=== PATIENT | female | born 1960 | race Caucasian/White ===

== ENCOUNTER 2017-03-11 06:17 | Observation (INO) | payer OTHER ==
[~2017-03-11 06:17] MED LIST: Acetaminophen TAB* 325 MG PO ONE; Buffered Lidocaine 0.9% SYRIN* 5 ML/SYR SYRINGE INTRADERM ONE; Dexamethasone IV* 4 MG/ML 1 ML (4 MG) IV SLOW PU ONE; Famotidine IV* 10 MG/ML 2 ML (20 mg) IV ONE; Scopolamine 1.5 mg* PATCH TRANSDERM ONE
[2017-03-11] MEDS ORDERED: Dexamethasone IV* 4 MG/ML 1 ML (4 MG) ONE (06:42)
[2017-03-11] MEDS ORDERED: Acetaminophen TAB* 325 MG ONE (06:42)
[2017-03-11] MEDS ORDERED: Famotidine IV* 10 MG/ML 2 ML (20 mg) ONE (06:42)
[2017-03-11] MEDS ORDERED: Buffered Lidocaine 0.9% SYRIN* 5 ML/SYR SYRINGE ONE (06:42)
[2017-03-11] MEDS ORDERED: ceFAZolin 2 GM PREMIX (*) 2 GM/50 ML BAG IVPB ONE (06:43)
[2017-03-11] MEDS ORDERED: Midazolam* 1 MG/ML 2 ML VIAL (2 MG) ONE (07:15)
[2017-03-11] MEDS ORDERED: Lidocaine 2% PF * 5 ML VIAL ONE (07:15)
[2017-03-11] MEDS ORDERED: fentaNYL* 50 MCG/ML 2 ML VIAL (100 MCG VIAL) ONE ×4 (07:15→10:29)
[2017-03-11] MEDS ORDERED: Rocuronium* 10 MG/ML VIAL ONE (07:17)
[2017-03-11] MEDS ORDERED: Scopolamine 1.5 mg* PATCH ONE (07:21)
[2017-03-11 07:23] LABS: Hematocrit 42 % (35-47); Hemoglobin 14.5 g/dl (12.0-16.0); Mean Corpuscular HGB Conc 34 g/dl (31-36); Mean Corpuscular Hemoglobin 32 pg (27-31); Mean Corpuscular Volume 94 fL (80-97); Mean Platelet Volume 6 um3 (7.4-10.4); Red Blood Count 4.46 10^6/ul (4.0-5.4); Red Cell Distribution Width 13 % (10.5-15); White Blood Count 3.1 10^3/ul (3.5-10.8)
[2017-03-11] MEDS ORDERED: oxyCODONE TAB* 5 MG TAB PO PRN (07:23)
[2017-03-11] MEDS ORDERED: Ibuprofen TAB* 600 MG PO PRN ×2 (07:23→12:05)
[2017-03-11] MEDS ORDERED: oxyCODONE/Acetamin 5/325 MG* TAB PO PRN (07:23)
[2017-03-11] MEDS ORDERED: diPHENhydraMINE IV* 50 MG/ML 1 ml VIAL (BENADRYL) IV PRN (07:23)
[2017-03-11] MEDS ORDERED: DiMENhydriNATE IV* 50 MG/ML VIAL IV PUSH PRN (07:23)
[2017-03-11] MEDS ORDERED: Ondansetron INJ* 2 MG/ML VIAL IV PRN ×2 (07:23→12:07)
[2017-03-11 07:24] LABS: Add Diff/Slide Review? Slide Review Added; Comments Flag Yes
[2017-03-11] MEDS ORDERED: Bupivacaine 0.5% SDV PF* 30 ML VIAL ONE (07:30)
[2017-03-11] MEDS ORDERED: EPHEDrine (Pressors)* 50 MG/ML VIAL ONE (08:12)
[2017-03-11] MEDS ORDERED: Sterile Water for Inj* 10 ML ONE (08:12)
[2017-03-11] MEDS ORDERED: Glycopyrrolate IV* 0.2 MG/ML 1 ML VIAL ONE ×2 (08:24→09:20)
[2017-03-11] MEDS ORDERED: Ketorolac INJ* 30 MG/ML 1 ML VIAL ONE (09:20)
[2017-03-11] MEDS ORDERED: Ondansetron INJ* 2 MG/ML VIAL ONE (09:20)
[2017-03-11] MEDS ORDERED: Neostigmine Methylsulfate* 2 MG/2 ML SYRINGE ONE (09:20)
[2017-03-11] MEDS ORDERED: HYDROmorphone INJ* 1 MG/ML CARPUJECT SYRINGE ONE (10:18)
[2017-03-11] MEDS: fentaNYL* 50 MCG/ML 2 ML VIAL (100 MCG VIAL) IV PRN ×2 (10:19→10:26)
[2017-03-11] MEDS: HYDROmorphone INJ* 1 MG/ML CARPUJECT SYRINGE IV PRN ×3 (10:20→11:01)
[2017-03-11] MEDS ORDERED: Triamcinolone 0.025% OINT * 15 GM TUBE TOPICAL PRN (11:54)
[2017-03-11] MEDS ORDERED: HYDROmorphone INJ* 1 MG/ML CARPUJECT SYRINGE IV PRN (12:06)
--- NOTE | 2017-03-11 16:33 | OP ---
OPERATIVE REPORT: DATE OF OPERATION: 03/11/17 DATE OF : 60 SURGEON: Hernandez Middleton MD. BLOCKERS SKIVER: Dr. Rios. ANESTHESIA: General endotracheal tube. PRE-OP DIAGNOSES: Fibroid uterus, menorrhagia, failed endometrial ablation. POST-OP DIAGNOSES: Fibroid uterus, menorrhagia, failed endometrial ablation. OPERATIVE PROCEDURE: Laparoscopic supracervical hysterectomy and bilateral salpingectomy. COMPLICATIONS: None. FINDINGS: On exam under anesthesia, anterior bladder flap appeared normal. The cul-de-sac appeared normal. Both tubes and ovaries appeared normal. The uterus was quite enlarged measuring 14 weeks size and weight in the operating room was 3 pounds 9 ounces, approximately 1.6 kilos. DESCRIPTION OF PROCEDURE: The patient identified, procedure identified as a laparoscopic supracervical hysterectomy. The patient was taken to the operating room, prepped and draped in the usual fashion in the dorsal lithotomy position under general anesthesia. A Tabernash manipulator was placed in the cervical os. A small infraumbilical incision was made and carried down through fat, fascia and peritoneum. First, an Girish was placed in the abdomen and then a Gelpoint was placed over this with 3 trocar sites. The above findings were noted. The round ligaments were grasped bilaterally and ligated and incised. A bladder flap was created via sharp and blunt dissection. The left fallopian tube was grasped at the fimbriated ends and ligated using the LigaSure along the mesosalpinx until it was excised and was brought out through the abdominal incision. Same procedure was carried out on the right. The ovarian ligament was grasped and ligated using the LigaSure and brought down to the level on the left. The broad ligament was coagulated and incised using the LigaSure. The bladder flap was further dissected caudally. The uterine vessels on the left side were cauterized, ligated and incised. Same procedure was carried out on the right with the right ovarian ligament first being cauterized and then the LigaSure used to cauterize and incise the broad ligament until the level of the uterine vessels were obtained and these were ligated and incised leaving the lower uterine segment and the upper cervix exposed and free of blood supply. The Supra Loop was brought in again through the Gelpoint and placed around the cervical uterine junction and tightened down. It was closely inspected using the scope to make sure that there was no bowel or any other organs within the Supra Loop. The manipulator had been removed at the time of using the Supra Loop. At 100 pure cut, the Supra Loop was used to excise the uterus from the cervix with good hemostasis noted. The Gelpoint was removed and an enclosing bag was placed within the abdominal cavity. The uterus was placed within the bag and the gas was deflated. With the uterus in the bag and a guard placed around the incision, the uterus was then morcellated using hand morcellation using scissors and knife until the whole uterus was excised out of the bag and sent for specimen. The Gelpoint was placed back in the Griish. The abdomen was inspected. It was found that the ureters were well distant from the site of operation that all the pedicles were dry and the cervix was hemostatic as well. All instruments were removed from the abdomen. The abdomen was deflated of CO2. The fascia was then closed using 0 Polysorb in a running fashion. Good hemostasis achieved in the subcu tissue and the skin was closed using 4-0 Polysorb in a subcuticular fashion and skin glue was used as well to close the skin. All sponge and instruments counts were correct. [id number]/[facility] #: [id number] MTDD
[2017-03-11 16:46] LABS: Hematocrit 40 % (35-47); Hemoglobin 13.2 g/dl (12.0-16.0)
[2017-03-11] MEDS: [UNRECOGNIZED DRUG - OTHER] PO SCH (20:11)
[2017-03-11] MEDS: MAGNESIUM LACTATE PO SCH (20:11)
[2017-03-11] MEDS: [UNRECOGNIZED DRUG - OTHER] PO SCH (20:11)
[2017-03-11] MEDS: oxyCODONE/Acetamin 5/325 MG* TAB PO PRN (22:40)
[2017-03-12] MEDS: oxyCODONE/Acetamin 5/325 MG* TAB PO PRN ×2 (04:04→08:19)
[2017-03-12 04:07] VITALS: BP 138/78
[2017-03-12] MEDS: [UNRECOGNIZED DRUG - OTHER] PO SCH (08:13)
[2017-03-12] MEDS: [UNRECOGNIZED DRUG - OTHER] PO SCH (08:13)
[2017-03-12] MEDS: MAGNESIUM LACTATE PO SCH (08:14)
[2017-03-12] MEDS: Losartan TAB* 25 MG PO SCH ×2 (08:18→08:20)
[2017-03-12] MEDS ORDERED: [UNRECOGNIZED DRUG - OTHER] PO SCH (09:00)
[2017-03-12] MEDS ORDERED: MINOCYCLINE 50 MG PO SCH (09:00)
[2017-03-12] MEDS ORDERED: [UNRECOGNIZED DRUG - OTHER] PO SCH (09:00)
[2017-03-12] MEDS ORDERED: CATAPLEX D PO SCH (09:00)
[2017-03-14] MEDS ORDERED: Scopolamine PATCH Remove* 1 NOTE MISC PATCH OFF ONE (06:00)
--- NOTE | 2017-03-16 03:46 | DS ---
CC: Primary Care DISCHARGE SUMMARY: DATE OF ADMISSION: 03/11/17 DATE OF DISCHARGE: 03/12/17 PRINCIPAL DIAGNOSES: Fibroid uterus, menorrhagia, and failed endometrial ablation. COMPLICATIONS: None. HISTORY: This is a 57-year-old with pelvic pain and bleeding due to large fibroids. The patient had been on Lupron for 2 months and had no bleeding since this. At the time of admission, she was on Ebony pron, tranexamic acid, losartan, and minocycline. Medical history is significant for rosacea, hypert ension, and hypercholesterolemia. Surgical history includes an endometrial ablation in 2002, D and C , wisdom tooth extraction. She does not smoke cigarettes. HEENT within normal limits. Neck was sup ple. Chest was clear to auscultation. Uterus was 12 to 14 weeks size and she was admitted for lapar oscopic supracervical hysterectomy, which she underwent on March 11 without complication. She jiang d both tubes removed and ovaries remained in place and appeared normal. She did well postoperatively with a postop hemoglobin of 13.2 and hematocrit of 40. Pathology was benign, showing leiomyoma and a weight of 395 g uterus with fragments of leiomyoma, adenomyosis, proliferative endometrium, and nor mal fallopian tubes. [id number]/[facility] #: [id number]
== END 2017-03-12 10:10 | disposition home or self-care (01) ==
LOC: OR 06:17 → SSU 11:24
PROVIDERS: ADMIT Obstetrics & Gynecology; ATTEND Obstetrics & Gynecology
PROC: 0UT74ZZ Resection of Bilateral Fallopian Tubes, Percutaneous Endoscopic Approach (ICD-10-PCS; 2017-03-11)
PROC: 0UT94ZL Resection of Uterus, Supracervical, Percutaneous Endoscopic Approach (ICD-10-PCS; principal; 2017-03-11 07:45)
DX: D25.9 Leiomyoma of uterus, unspecified (principal); N92.0 Excessive and frequent menstruation with regular cycle
CPT/HCPCS: 36415; 85014; 85018; 85025; 86703; 86803; 86850; 86900; 86901; 88307; A9270-GY; G0378; J0690; J1100; J1170; J1885; J2250; J2405; J3010